=== PATIENT | female | born 1955 | race African-American/Black ===

== ENCOUNTER 2025-01-23 15:40 | Inpatient (IN) | payer MEDICARE, MEDICAID ==
[~2025-01-23] VITALS: Ht 162.6 cm; Wt 83.9 kg
[2025-01-23] MEDS: ALBUTEROL (0.083%) 2.5MG/3ML NEB HHN SCH
[2025-01-23] MEDS: SODIUM CHLORIDE 0.9% 1,000 ML IV ONE (16:06)
[2025-01-23 16:15] VITALS: PULSE 70; RESP 14; O2SAT 100
[2025-01-23] MEDS: AZTREONAM 1 G in DEXTROSE 5% WATER 50 ML IV SCH (16:22)
[2025-01-23] MEDS: METHYLPREDNISOLONE SOD SUCC 125MG/2ML (ACT-O-VIAL) IV ONE (16:30)
[2025-01-23] MEDS: IPRATROPIUM BROMIDE (0.02%) 0.5MG/2.5ML NEB HHN SCH (16:40)
[2025-01-23 16:46] LABS: BASOPHILS % 0.6 % (0.0-2.0); EOSINOPHILS % 10.0 % (0.0-5.0); HEMATOCRIT. 27.5 % (36.0-48.0); HEMOGLOBIN. 7.4 g/dL (12.0-16.0); LYMPHOCYTES % 17.3 % (20.0-50.0); MEAN PLATELET VOLUME 9.1 fl (7.4-10.4); MONOCYTES % 14.3 % (2.0-8.0); NEUTROPHILS % 57.8 % (40.0-76.0); PLATELET 122 x1000/uL (130-400); RED BLOOD CELL COUNT 2.38 mill/uL (4.2-5.4); RED CELL DISTRIBUTION WIDTH 15.4 % (11.6-14.6)
[2025-01-23 16:48] LABS: ADD RBC MORPHOLOGY YES
[2025-01-23 16:55] LABS: TROPONIN I HIGH SENSITIVITY 5 ng/L (3.0-34)
[2025-01-23 17:00] LABS: INR 1.7
[2025-01-23 17:04] VITALS: PULSE 59; RESP 14; O2SAT 100
[2025-01-23 17:34] LABS: BG BASE EXCESS -2.4 mmol/L (-2.0-3.0); BG CARBOXYHEMOGLOBIN 0.8 % (0.5-1.5); BG DEOXYHEMOGLOBIN 0.5 % (0.0-5.0); BG FRACTION INSPIRED OXYGEN 50; BG HCO3 ACT 26.7 mmol/L (21.0-28.0); BG METHEMOGLOBIN 0.1 % (0.5-1.5); BG OXYGEN SATURATION 99.5 % (94.0-98.0); BG OXYHEMOGLOBIN 98.6 % (94.0-98.0); BG PCO2 69.5 mmHg (32.0-45.0); BG PEEP (cmH2O) 5.0 cmH2O; BG PH 7.202 (7.350-7.450); BG PO2 227.8 mmHg (83.0-108.0); BG SAMPLE SITE LEFT RADIAL; BG TIDAL VOLUME(mL) 500.0 mL; BG TOTAL HEMOGLOBIN 11.5 g/dL (12.0-16.0); BG VENT MODE VENT - AC; BG VENT RATE 14.0 set
[2025-01-23 17:35] LABS: PLATELET ESTIMATE DECREASED
[2025-01-23] MEDS: VANCOMYCIN 1G PREMIX 200 ML IV ONE (17:37)
[2025-01-23] MEDS: PROPOFOL 10MG/ML 100ML 100 ML IV SCH (17:39)
[2025-01-23 17:47] VITALS: PULSE 57; RESP 20; O2SAT 100
[2025-01-23 19:09] LABS: CREATININE 2.3 mg/dL (0.6-1.0)
[2025-01-23 19:10] LABS: ETHANOL BLOOD < 10 mg/dL (<10); PROTEIN TOTAL 6.2 g/dL (6.0-8.3); UREA NITROGEN BLOOD 20 mg/dL (9-23)
[2025-01-23 19:11] LABS: ASPARTATE AMINOTRANSFERASE 24 IU/L (<34); TROPONIN I HIGH SENSITIVITY 9 ng/L (3.0-34)
[2025-01-23 19:12] LABS: BILIRUBIN DIRECT < 0.1 mg/dL (<=3.0); BILIRUBIN TOTAL 0.3 mg/dL (0.1-1.0)
[2025-01-23 19:26] VITALS: PULSE 59; RESP 20; O2SAT 100
[2025-01-23 19:45] LABS: INFLUENZA TYPE A Presumptive Negative (Pres. Neg.); INFLUENZA TYPE B Presumptive Negative (Pres. Neg.)
[2025-01-23 19:47] LABS: RESPIRATORY SYNCYTIAL VIRUS Not Detected (Not Detectd)
[2025-01-23] MEDS ORDERED: ACETAMINOPHEN 325MG TABLET PO PRN (21:00)
[2025-01-23] MEDS ORDERED: ONDANSETRON HCL 4MG/2ML INJ IV PRN (21:00)
[2025-01-23] MEDS ORDERED: GUAIFENESIN 200MG/10ML SUGAR FREE UDC PO PRN (21:00)
[2025-01-23] MEDS ORDERED: LEVETIRACETAM 500MG in NACL 100ML PREMIX IV SCH (21:00)
[2025-01-23] MEDS ORDERED: IPRATROPIUM/ALBUTEROL 0.5-3(2.5)MG/3ML NEB HHN PRN (21:00)
[2025-01-23] MEDS ORDERED: NOREPINEPHRINE 8MG/250ML PMX 250 ML IV PRN (21:00)
[2025-01-23] MEDS ORDERED: DOCUSATE SODIUM 100MG CAPSULE PO PRN (21:00)
[2025-01-23] MEDS ORDERED: PROPOFOL 10MG/ML 100ML 100 ML IV PRN (21:15)
[2025-01-23] MEDS ORDERED: DEXTROSE 50% WATER 50ML SYRINGE IV PRN (22:15)
[2025-01-23] MEDS: PANTOPRAZOLE SODIUM 40 MG/VIAL IV SCH (23:39)
[2025-01-23] MEDS: LEVETIRACETAM 500MG PREMIX 100ML IV SCH (23:39)
[2025-01-23] MEDS: VANCOMYCIN 1GM/200ML PMX (BAXTER) IV SCH (23:40)
[2025-01-23 23:41] LABS: FOLIC ACID (FOLATE) SERUM 13.23 ng/mL (>5.38)
[2025-01-23 23:43] LABS: VITAMIN B12 SERUM 438 pg/mL (211-911)
[2025-01-23 23:45] LABS: CREATININE 2.0 mg/dL (0.6-1.0); UREA NITROGEN BLOOD 23.0 mg/dL (9-23)
[2025-01-23 23:46] LABS: TROPONIN I HIGH SENSITIVITY 7 ng/L (3.0-34)
[2025-01-24] VITALS (79 sets, daily range): BP systolic 98–197; BP diastolic 60–133; PULSE 60–127; RESP 13–26; TEMP 36.1–36.7; O2SAT 96–100
[2025-01-24 00:07] LABS: HEMATOCRIT. 33.8 % (36.0-48.0); MEAN PLATELET VOLUME 9.2 fl (7.4-10.4); PLATELET 183 x1000/uL (130-400); RED BLOOD CELL COUNT 3.43 mill/uL (4.2-5.4); RED CELL DISTRIBUTION WIDTH 15.0 % (11.6-14.6)
[2025-01-24] MEDS: MAGNESIUM 2 G PREMIX 50 ML IV SCH (00:08)
[2025-01-24] MEDS: METHYLPREDNISOLONE SOD SUCC 40MG/ML (ACT-O-VIAL) IV SCH (00:08)
[2025-01-24] MEDS: DEXT 5%/0.45% NACL 1000ML 1,000 ML IV SCH (00:08)
[2025-01-24 00:14] LABS: HEPATITIS A AB IGM NEGATIVE (Negative)
[2025-01-24] MEDS: IPRATROPIUM/ALBUTEROL 0.5-3(2.5)MG/3ML NEB NEB SCH (00:15)
[2025-01-24 00:16] LABS: HEPATITIS B CORE AB IGM NEGATIVE (Negative); HEPATITIS C AB NON REACTIVE (Neg) (Negative)
[2025-01-24] MEDS: NOREPINEPHRINE 8MG/250ML PMX 250 ML IV ONE (00:25)
[2025-01-24 00:30] LABS: HEMOGLOBIN. 10.5 g/dL (12.0-16.0)
[2025-01-24] MEDS: AZTREONAM 1 G in DEXTROSE 5% WATER 50 ML IV SCH (01:00)
[2025-01-24] MEDS ORDERED: FENTANYL 2500MCG/250ML PMX 250 ML IV PRN (01:45)
[2025-01-24] MEDS: FENTANYL 2500MCG/250ML PMX 250 ML IV PRN (02:00)
[2025-01-24] MEDS: NOREPINEPHRINE 8MG/250ML PMX 250 ML IV PRN (02:28)
[2025-01-24] MEDS ORDERED: MIDAZOLAM 100MG/100ML PMX 100 ML IV PRN (02:30)
[2025-01-24] MEDS: LEVOFLOXACIN 750MG PREMIX 150 ML IV SCH (02:48)
[2025-01-24 02:58] LABS: BAND% 1.0 % (1.0-6.0); EOSINOPHILS % MANUAL 8.0 % (0.0-5.0); LYMPHOCYTES % MANUAL 34.0 % (20.0-60.0); MONOCYTES % MANUAL 10.0 % (2.0-8.0); NEUTROPHILS % MANUAL 47.0 % (45.0-75.0); PLATELET ESTIMATE NORMAL
[2025-01-24 05:31] LABS: CLARITY URINE CLEAR (CLEAR); COLOR URINE YELLOW (YELLOW); GLUCOSE URINE NEGATIVE (NEGATIVE); KETONES URINE NEGATIVE (NEGATIVE); LEUKOCYTE ESTERASE URINE NEGATIVE (NEGATIVE); NITRITE URINE NEGATIVE (NEGATIVE); OCCULT BLOOD URINE NEGATIVE (NEGATIVE); PH URINE 5.5 (4.5-8.0); PROTEIN URINE TRACE (NEGATIVE); SPECIFIC GRAVITY URINE 1.012 (1.005-1.030); UROBILINOGEN URINE 0.2 E.U./dL (0.2-1.0)
[2025-01-24] MEDS: BLOOD SUGAR DIAGNOSTIC STRIP TEST SCH (05:47)
[2025-01-24 06:28] LABS: *AMPHETAMINES SCREEN URINE NEGATIVE (NEGATIVE); *BARBITURATES SCREEN URINE NEGATIVE (NEGATIVE); *BENZODIAZEPINES SCREEN URINE NEGATIVE (NEGATIVE); *COCAINE SCREEN URINE NEGATIVE (NEGATIVE); CANNABINOID URINE SCREEN NEGATIVE (NEGATIVE); ECSTASY MDMA SCREEN URINE CONF.TEST INDICATED (NEGATIVE); METHADONE URINE SCREEN NEGATIVE (NEGATIVE); OPIATES URINE SCREEN PRESUMPTIVE POSITIVE (NEGATIVE); PHENCYCLIDINE URINE SCREEN NEGATIVE (NEGATIVE)
[2025-01-24 06:34] LABS: SQUAMOUS EPITHELIAL CELL URINE FEW /lpf (RARE/1+)
[2025-01-24 06:36] LABS: BACTERIA URINE NONE SEEN; RBC URINE 0-2 /hpf (0-2); WBC URINE 0-2 /hpf (0-2)
[2025-01-24] MEDS: PROPOFOL 10MG/ML 100ML 100 ML IV PRN (06:56)
[2025-01-24] MEDS: MIDAZOLAM 100MG/100ML PMX 100 ML IV PRN (06:57)
[2025-01-24] MEDS: ENOXAPARIN 30MG/0.3ML SYR SUBCUT SCH (08:51)
[2025-01-24] MEDS: HYDRALAZINE 20MG/ML VIAL IV PRN (08:57)
[2025-01-24] MEDS: AMLODIPINE 5MG TABLET PO SCH (09:20)
[2025-01-24] MEDS: LOSARTAN 25 MG TABLET PO SCH (09:20)
[2025-01-24 10:44] LABS: TROPONIN I HIGH SENSITIVITY 9 ng/L (3.0-34)
[2025-01-24 10:48] LABS: CREATININE 1.0 mg/dL (0.6-1.0); TRIGLYCERIDE 41 mg/dL (0-150); UREA NITROGEN BLOOD 19 mg/dL (9-23)
[2025-01-24 10:49] LABS: LDL CHOLESTEROL 68 mg/dL (5-100); PROTEIN TOTAL 6.6 g/dL (6.0-8.3)
[2025-01-24 10:50] LABS: ASPARTATE AMINOTRANSFERASE 22 IU/L (<34); BILIRUBIN DIRECT 0.1 mg/dL (<=3.0); BILIRUBIN TOTAL 0.3 mg/dL (0.1-1.0)
[2025-01-24] MEDS: AZTREONAM 2GM in DEXTROSE 5% WATER 100ML IV SCH ×2 (10:50→18:42)
[2025-01-24 10:52] LABS: T4 FREE 0.94 ng/dL (0.89-1.76)
[2025-01-24 10:53] LABS: BASOPHILS % 0.1 % (0.0-2.0); EOSINOPHILS % 0.1 % (0.0-5.0); HEMATOCRIT. 33.7 % (36.0-48.0); HEMOGLOBIN. 10.7 g/dL (12.0-16.0); LYMPHOCYTES % 9.8 % (20.0-50.0); MEAN PLATELET VOLUME 9.8 fl (7.4-10.4); MONOCYTES % 0.8 % (2.0-8.0); NEUTROPHILS % 89.2 % (40.0-76.0); PLATELET 183 x1000/uL (130-400); RED BLOOD CELL COUNT 3.55 mill/uL (4.2-5.4); RED CELL DISTRIBUTION WIDTH 14.9 % (11.6-14.6)
[2025-01-24 12:52] LABS: PHOSPHORUS 3.1 mg/dL (2.5-4.9)
[2025-01-24 17:27] LABS: BG BASE EXCESS 0.3 mmol/L (-2.0-3.0); BG CARBOXYHEMOGLOBIN 0.8 % (0.5-1.5); BG DEOXYHEMOGLOBIN 4.1 % (0.0-5.0); BG FRACTION INSPIRED OXYGEN 40; BG HCO3 ACT 24.3 mmol/L (21.0-28.0); BG METHEMOGLOBIN 0.3 % (0.5-1.5); BG OXYGEN SATURATION 95.9 % (94.0-98.0); BG OXYHEMOGLOBIN 94.8 % (94.0-98.0); BG PCO2 37.2 mmHg (32.0-45.0); BG PEEP (cmH2O) 5.0 cmH2O; BG PH 7.433 (7.350-7.450); BG PO2 80.4 mmHg (83.0-108.0); BG SAMPLE SITE RIGHT RADIAL; BG TIDAL VOLUME(mL) 500.0 mL; BG TOTAL HEMOGLOBIN 12.1 g/dL (12.0-16.0); BG VENT MODE VENT - AC/PRVC; BG VENT RATE 20.0 set
[2025-01-24] MEDS ORDERED: IOHEXOL-350 100 ML BOTTLE ONE (23:44)
[2025-01-25] VITALS (104 sets, daily range): BP systolic 82–162; BP diastolic 45–114; PULSE 67–135; RESP 7–25; TEMP 36.1–36.7; O2SAT 88–100
[2025-01-25] MEDS: LEVOFLOXACIN 750MG PREMIX 150 ML IV SCH (00:20)
[2025-01-25 05:54] LABS: CREATININE 0.8 mg/dL (0.6-1.0); UREA NITROGEN BLOOD 14 mg/dL (9-23)
[2025-01-25 07:55] LABS: TROPONIN I HIGH SENSITIVITY 25 ng/L (3.0-34)
[2025-01-25] MEDS: SODIUM BICARBONATE 8.4% 50MEQ/50ML SYR IV NR (08:36)
[2025-01-25] MEDS: CALCIUM GLUCONATE 100MG/ML 10ML VIAL IV NR (08:37)
[2025-01-25] MEDS: DEXTROSE 50% WATER 50ML SYRINGE IV NR (08:37)
[2025-01-25] MEDS: INSULIN REGULAR (HUMULIN R) 1000UNITS/10ML VIAL IV NR (08:43)
[2025-01-25] MEDS: VANCOMYCIN 750MG PREMIX 150 ML IV SCH ×2 (09:06→21:28)
[2025-01-25 09:07] LABS: COMPLEMENT C3 160 mg/dL (82-167); COMPLEMENT C4 29 mg/dL (12-38)
[2025-01-25] MEDS: PROPOFOL 10MG/ML 100ML 100 ML IV PRN (09:08)
[2025-01-25] MEDS ORDERED: VANCOMYCIN 750MG/150ML (BAXTER) IV SCH (12:00)
[2025-01-25 13:12] LABS: ANTI-NUCLEAR ANTIBODIES DIRECT Negative (Negative)
[2025-01-25 13:39] LABS: BASOPHILS % 0.1 % (0.0-2.0); EOSINOPHILS % 0.0 % (0.0-5.0); HEMATOCRIT. 33.1 % (36.0-48.0); HEMOGLOBIN. 10.6 g/dL (12.0-16.0); LYMPHOCYTES % 8.3 % (20.0-50.0); MEAN PLATELET VOLUME 9.7 fl (7.4-10.4); MONOCYTES % 8.4 % (2.0-8.0); NEUTROPHILS % 83.2 % (40.0-76.0); PLATELET 223 x1000/uL (130-400); RED BLOOD CELL COUNT 3.49 mill/uL (4.2-5.4); RED CELL DISTRIBUTION WIDTH 14.6 % (11.6-14.6)
[2025-01-25] MEDS: DOXYCYCLINE 100MG/100ML 100 ML IV SCH (15:30)
[2025-01-25] MEDS: DEXMEDETOMIDINE 100 ML IV PRN (16:55)
[2025-01-26] VITALS (109 sets, daily range): BP systolic 94–222; BP diastolic 56–153; PULSE 72–153; RESP 13–28; TEMP 36.4–37.2; O2SAT 90–100
[2025-01-26 05:21] LABS: HEMATOCRIT. 30.9 % (36.0-48.0); HEMOGLOBIN. 10.0 g/dL (12.0-16.0); MEAN PLATELET VOLUME 9.4 fl (7.4-10.4); PLATELET 194 x1000/uL (130-400); RED BLOOD CELL COUNT 3.23 mill/uL (4.2-5.4); RED CELL DISTRIBUTION WIDTH 15.1 % (11.6-14.6)
[2025-01-26 09:21] LABS: CREATININE 0.7 mg/dL (0.6-1.0); TRIGLYCERIDE 61 mg/dL (0-150); UREA NITROGEN BLOOD 19 mg/dL (9-23)
[2025-01-26 10:40] LABS: BAND% 3.0 % (1.0-6.0); LYMPHOCYTES % MANUAL 8.0 % (20.0-60.0); MONOCYTES % MANUAL 8.0 % (2.0-8.0); NEUTROPHILS % MANUAL 81.0 % (45.0-75.0); PLATELET ESTIMATE NORMAL
[2025-01-26] MEDS: PROPOFOL 10MG/ML 100ML 100 ML IV PRN (12:07)
[2025-01-27] VITALS (108 sets, daily range): BP systolic 99–192; BP diastolic 59–132; PULSE 63–162; RESP 5–31; TEMP 36.4–37.2; O2SAT 95–100
[2025-01-27 10:15] LABS: BASOPHILS % 0.2 % (0.0-2.0); EOSINOPHILS % 0.0 % (0.0-5.0); HEMATOCRIT. 32.3 % (36.0-48.0); HEMOGLOBIN. 10.4 g/dL (12.0-16.0); LYMPHOCYTES % 8.3 % (20.0-50.0); MEAN PLATELET VOLUME 9.7 fl (7.4-10.4); MONOCYTES % 6.2 % (2.0-8.0); NEUTROPHILS % 85.3 % (40.0-76.0); PLATELET 185 x1000/uL (130-400); RED BLOOD CELL COUNT 3.40 mill/uL (4.2-5.4); RED CELL DISTRIBUTION WIDTH 14.7 % (11.6-14.6)
[2025-01-27 10:22] LABS: CREATININE 0.5 mg/dL (0.6-1.0); UREA NITROGEN BLOOD 14 mg/dL (9-23)
[2025-01-27] MEDS: PROPOFOL 10MG/ML 100ML 100 ML IV PRN (12:43)
[2025-01-27] MEDS ORDERED: QUET50TA MT (15:09)
[2025-01-27] MEDS ORDERED: HYDR10TA34 PO (15:09)
[2025-01-27 17:08] LABS: BG BASE EXCESS -0.2 mmol/L (-2.0-3.0); BG CARBOXYHEMOGLOBIN 0.2 % (0.5-1.5); BG DEOXYHEMOGLOBIN 2.6 % (0.0-5.0); BG FRACTION INSPIRED OXYGEN 35; BG HCO3 ACT 24.4 mmol/L (21.0-28.0); BG METHEMOGLOBIN 0.3 % (0.5-1.5); BG OXYGEN SATURATION 97.4 % (94.0-98.0); BG OXYHEMOGLOBIN 96.9 % (94.0-98.0); BG PCO2 40.0 mmHg (32.0-45.0); BG PEEP (cmH2O) 5.0 cmH2O; BG PH 7.404 (7.350-7.450); BG PO2 91.5 mmHg (83.0-108.0); BG SAMPLE SITE RIGHT RADIAL; BG TIDAL VOLUME(mL) 500.0 mL; BG TOTAL HEMOGLOBIN 12.3 g/dL (12.0-16.0); BG VENT MODE VENT - AC; BG VENT RATE 20.0 set
[2025-01-27] MEDS: RISPERIDONE 1MG TABLET PO SCH (20:16)
[2025-01-28] VITALS (96 sets, daily range): BP systolic 96–192; BP diastolic 56–128; PULSE 60–150; RESP 14–37; TEMP 36.5–36.9; O2SAT 94–100
[2025-01-28] MEDS ORDERED: NOREPINEPHRINE 32 MG in DEXT 5% WATER 218 ML IV PRN (01:45)
[2025-01-28] MEDS: CLONAZEPAM 0.5MG TABLET PO SCH (14:00)
[2025-01-28 15:07] LABS: FIBRINOGEN DEGRADATION PRODUCT < 5 ug/mL (<5)
[2025-01-28] MEDS: METHYLPREDNISOLONE SOD SUCC 40MG/ML (ACT-O-VIAL) IV SCH (21:27)
[2025-01-29] VITALS (83 sets, daily range): BP systolic 96–200; BP diastolic 62–160; PULSE 84–142; RESP 15–36; TEMP 36.7–37.3; O2SAT 90–100
[2025-01-29] MEDS ORDERED: LORAZEPAM 2MG/ML UD SYRINGE IV PRN (02:00)
[2025-01-29] MEDS: LORAZEPAM 2MG/ML UD SYRINGE IV NR (02:05)
[2025-01-29] MEDS: DEXMEDETOMIDINE 100 ML IV PRN (05:00)
[2025-01-29 10:10] LABS: BG BASE EXCESS -1.0 mmol/L (-2.0-3.0); BG CARBOXYHEMOGLOBIN 0.7 % (0.5-1.5); BG DEOXYHEMOGLOBIN 2.2 % (0.0-5.0); BG FLOW(L/min) 6.00 L/min; BG FRACTION INSPIRED OXYGEN 44; BG HCO3 ACT 23.2 mmol/L (21.0-28.0); BG METHEMOGLOBIN 0.3 % (0.5-1.5); BG OXYGEN SATURATION 97.8 % (94.0-98.0); BG OXYHEMOGLOBIN 96.8 % (94.0-98.0); BG PCO2 37.1 mmHg (32.0-45.0); BG PH 7.414 (7.350-7.450); BG PO2 98.7 mmHg (83.0-108.0); BG SAMPLE SITE RIGHT RADIAL; BG TOTAL HEMOGLOBIN 12.8 g/dL (12.0-16.0); BG VENT MODE NASAL CANNULA
[2025-01-30] VITALS (85 sets, daily range): BP systolic 108–186; BP diastolic 65–118; PULSE 67–111; RESP 10–24; TEMP 36.7–37.2; O2SAT 94–100
[2025-01-30 06:53] LABS: PLATELET 181 x1000/uL (130-400); RED BLOOD CELL COUNT 3.28 mill/uL (4.2-5.4); RED CELL DISTRIBUTION WIDTH 14.4 % (11.6-14.6)
[2025-01-30 07:07] LABS: CREATININE 0.5 mg/dL (0.6-1.0)
[2025-01-30 07:08] LABS: UREA NITROGEN BLOOD 15 mg/dL (9-23)
[2025-01-30] MEDS: LORAZEPAM 2MG/ML UD SYRINGE IV PRN (15:20)
[2025-01-31] VITALS (66 sets, daily range): BP systolic 117–173; BP diastolic 65–102; PULSE 86–118; RESP 16–28; TEMP 36.6–37.2; O2SAT 34–100
[2025-01-31] MEDS: IPRATROPIUM/ALBUTEROL 0.5-3(2.5)MG/3ML NEB HHN PRN (01:02)
[2025-01-31] MEDS: HYDRALAZINE 20MG/ML VIAL IV PRN (05:15)
[2025-01-31] MEDS: PREDNISONE 20MG TABLET PO SCH (09:23)
[2025-01-31 11:23] LABS: PLATELET 193 x1000/uL (130-400); RED BLOOD CELL COUNT 3.29 mill/uL (4.2-5.4); RED CELL DISTRIBUTION WIDTH 14.0 % (11.6-14.6)
[2025-01-31 11:45] LABS: CREATININE 0.4 mg/dL (0.6-1.0); UREA NITROGEN BLOOD 7 mg/dL (9-23)
[2025-01-31] MEDS ORDERED: KCL 10MEQ/50ML PREMIX 50 ML IV SCH (12:15)
[2025-01-31] MEDS: MAGNESIUM 1 G PREMIX 100 ML IV NR (12:34)
[2025-01-31] MEDS ORDERED: NALOXONE HCL 0.4MG/ML VIAL IV PRN (13:15)
[2025-01-31] MEDS: KCL 20MEQ/100ML X 2 FOR TOTAL KCL 40MEQ/200ML IV SCH (13:54)
[2025-01-31 16:11] LABS: PHOSPHORUS 2.1 mg/dL (2.5-4.9)
[2025-02-01] VITALS (12 sets, daily range): BP systolic 119–166; BP diastolic 67–94; PULSE 94–118; RESP 18–23; TEMP 36.9–37.7; O2SAT 92–99
[2025-02-01] MEDS: POTASSIUM PHOSPHATE 20 MMOL in DEXT 5% WATER 243.3333 ML IV SCH (00:28)
[2025-02-01 07:16] LABS: CREATININE 0.5 mg/dL (0.6-1.0)
[2025-02-01 07:18] LABS: UREA NITROGEN BLOOD 8 mg/dL (9-23)
[2025-02-01 07:20] LABS: PHOSPHORUS 3.6 mg/dL (2.5-4.9)
[2025-02-01] MEDS: ACETAMINOPHEN 325MG TABLET PO PRN (20:39)
[2025-02-02] VITALS (12 sets, daily range): BP systolic 137–166; BP diastolic 62–97; PULSE 89–112; RESP 16–21; TEMP 36.4–36.8; O2SAT 94–99
[2025-02-02] MEDS: PREDNISONE 20MG TABLET PO SCH (08:31)
[2025-02-03] VITALS (10 sets, daily range): BP systolic 114–166; BP diastolic 78–108; PULSE 63–104; RESP 14–19; TEMP 36.2–36.8; O2SAT 94–99
[2025-02-03 13:42] LABS: CREATININE 0.4 mg/dL (0.6-1.0)
[2025-02-03 13:43] LABS: UREA NITROGEN BLOOD < 5 mg/dL (9-23)
[2025-02-03] MEDS: HYDROCODONE/ACETAMINOPHEN 5/325MG TABLET PO PRN (13:51)
[2025-02-03] MEDS: LEVETIRACETAM 500MG TABLET PO SCH (13:52)
[2025-02-03] MEDS ORDERED: TRAZODONE HCL 50MG TABLET PO PRN (15:00)
[2025-02-03] MEDS: SERTRALINE HCL 25MG TABLET PO SCH (15:06)
[2025-02-03] MEDS: LORAZEPAM 1MG TABLET PO PRN (22:56)
[2025-02-04] VITALS: BP 152/74; PULSE 89; RESP 15; TEMP 36.4; TEMP 36.6; O2SAT 97
[2025-02-04 04:00] VITALS: BP 120/70; PULSE 92; RESP 13; TEMP 36.4; O2SAT 100
[2025-02-04 04:07] LABS: COMPLEMENT COMPONENT 5 15 mg/dL (7-20)
[2025-02-04 08:00] VITALS: BP 145/77; PULSE 89; RESP 14; TEMP 37.3; O2SAT 100
[2025-02-04 12:00] VITALS: BP 127/81; PULSE 84; RESP 14; TEMP 36.6; O2SAT 99
[2025-02-04] MEDS: POTASSIUM CHLORIDE 20MEQ TABLET SR PO SCH (14:23)
[2025-02-04 16:00] VITALS: BP 151/88; PULSE 92; RESP 20; TEMP 36.7; O2SAT 99
[2025-02-04 20:00] VITALS: BP 146/80; PULSE 70; RESP 19; TEMP 36.7; O2SAT 98
[2025-02-05] VITALS: BP 140/66; PULSE 76; RESP 18; TEMP 36.1; O2SAT 98
[2025-02-05 04:00] VITALS: BP 140/70; PULSE 76; PULSE 79; RESP 18; TEMP 37.1; O2SAT 97
[2025-02-05 08:00] VITALS: BP 140/87; PULSE 92; RESP 18; TEMP 36.2; O2SAT 98
[2025-02-05 12:00] VITALS: PULSE 96; RESP 18; TEMP 36.7; O2SAT 98
[2025-02-05 13:32] LABS: BASOPHILS % 0.1 % (0.0-2.0); EOSINOPHILS % 0.8 % (0.0-5.0); HEMATOCRIT. 35.7 % (36.0-48.0); HEMOGLOBIN. 11.3 g/dL (12.0-16.0); LYMPHOCYTES % 9.3 % (20.0-50.0); MEAN PLATELET VOLUME 9.0 fl (7.4-10.4); MONOCYTES % 5.1 % (2.0-8.0); NEUTROPHILS % 84.7 % (40.0-76.0); PLATELET 210 x1000/uL (130-400); RED BLOOD CELL COUNT 3.68 mill/uL (4.2-5.4); RED CELL DISTRIBUTION WIDTH 14.1 % (11.6-14.6)
[2025-02-05 13:50] LABS: CREATININE 0.4 mg/dL (0.6-1.0); UREA NITROGEN BLOOD 6 mg/dL (9-23)
[2025-02-05 16:00] VITALS: BP 126/82; PULSE 88; RESP 18; TEMP 36.2; O2SAT 97
[2025-02-05 20:00] VITALS: BP 146/77; PULSE 63; RESP 18; TEMP 36.8; O2SAT 95
[2025-02-06] VITALS (7 sets, daily range): BP systolic 105–168; BP diastolic 47–96; PULSE 69–92; RESP 18–20; TEMP 36.2–37.7; O2SAT 95–97
[2025-02-06] MEDS ORDERED: IPRATROPIUM/ALBUTEROL 0.5-3(2.5)MG/3ML NEB HHN PRN (09:00)
[2025-02-06] MEDS: RISPERIDONE 1MG TABLET PO SCH (09:12)
[2025-02-06] MEDS: TRAZODONE HCL 50MG TABLET PO PRN (21:47)
[2025-02-07] VITALS (7 sets, daily range): BP systolic 106–127; BP diastolic 50–68; PULSE 18–95; RESP 18–19; TEMP 36.3–37; O2SAT 95–97
[2025-02-07] MEDS ORDERED: ENOXAPARIN 30MG/0.3ML SYR SUBCUT SCH (09:00)
[2025-02-07] MEDS: ENOXAPARIN 40MG/0.4ML SYR SUBCUT SCH (09:29)
== END 2025-02-07 21:54 | DRG 207 ==
LOC: ER 15:40 → MICUSO 18:33 → EDBEDREQTM 18:35 → EDBEDREQ 18:35 → ENRESERV 01-24 03:27 → 5EST 01-28 23:25 → MICUSO 01-31 07:14 → 5EST 01-31 16:43 → 8WST 02-04 13:19
PROVIDERS: ADMIT Internal Medicine; ATTEND Internal Medicine
PROC: 5A1955Z Respiratory Ventilation, Greater than 96 Consecutive Hours (ICD-10-PCS; principal; 2025-01-23)
PROC: 0BH17EZ Insertion of Endotracheal Airway into Trachea, Via Natural or Artificial Opening (ICD-10-PCS; 2025-01-23)
PROC: 02HV33Z Insertion of Infusion Device into Superior Vena Cava, Percutaneous Approach (ICD-10-PCS; 2025-01-24)
PROC: B548ZZA Ultrasonography of Superior Vena Cava, Guidance (ICD-10-PCS; 2025-01-24)
PROC: 4A00X4Z Measurement of Central Nervous Electrical Activity, External Approach (ICD-10-PCS; 2025-01-27)
DX: J96.01 Acute respiratory failure with hypoxia (principal); G93.41 Metabolic encephalopathy; I50.33 Acute on chronic diastolic (congestive) heart failure; D68.9 Coagulation defect, unspecified; E87.0 Hyperosmolality and hypernatremia; I11.0 Hypertensive heart disease with heart failure; J44.1 Chronic obstructive pulmonary disease with (acute) exacerbation; D53.9 Nutritional anemia, unspecified; S51.011A Laceration without foreign body of right elbow, initial encounter; N17.9 Acute kidney failure, unspecified; J96.02 Acute respiratory failure with hypercapnia; E66.01 Morbid (severe) obesity due to excess calories; F20.9 Schizophrenia, unspecified; F32.A Depression, unspecified; G40.909 Epilepsy, unspecified, not intractable, without status epilepticus; Z20.822 Contact with and (suspected) exposure to COVID-19; E83.42 Hypomagnesemia; M25.411 Effusion, right shoulder; R73.9 Hyperglycemia, unspecified; Z68.38 Body mass index [BMI] 38.0-38.9, adult; I95.9 Hypotension, unspecified; E78.00 Pure hypercholesterolemia, unspecified; R00.0 Tachycardia, unspecified; E87.6 Hypokalemia; R41.0 Disorientation, unspecified; F41.9 Anxiety disorder, unspecified; Z79.899 Other long term (current) drug therapy; Z68.31 Body mass index [BMI] 31.0-31.9, adult; X58.XXXA Exposure to other specified factors, initial encounter; Y93.89 Activity, other specified; Y92.89 Other specified places as the place of occurrence of the external cause; Y99.8 Other external cause status
CPT/HCPCS: 31500; 31720; 36415; 36600; 71045; 71275; 74174; 76770; 80048; 80061; 80076; 80202; 80305; 80320; 81003; 82140; 82375; 82550; 82607; 82728; 82746; 82805; 82962; 83540; 83550; 83605; 83735; 83880; 84100; 84132; 84145; 84300; 84439; 84443; 84478; 84484; 85025; 85027; 85044; 85362; 85379; 85384; 86022; 86038; 86160; 86705; 86709; 86850; 86900; 87070; 87340; 87420; 87426; 87804; 93005; 93970; 94002; 94003; 94070; 94640; 94664; 97110; 97166; 97535; 98960; 99291; A4606; J0360; J0612; J1650; J1815; J1953; J1956; J2060; J2250; J2470; J2704; J2919; J3010; J3373; J3475; J3480; J3490; J7030; J7060; J7512; Q9967; G0480